=== PATIENT | female | born 1985 | race Caucasian/White ===

== ENCOUNTER 2016-11-11 15:55 | Outpatient (CLI) | payer OTHER ==
[~2016-11-11] VITALS: Ht 165.1 cm; Wt 65.9 kg
[2016-11-11 15:57] VITALS: Ht 165.1 cm; Wt 65.9 kg
[2016-11-11 16:22] VITALS: BP 102/63; PULSE 73; RESP 18
[2016-11-11] MEDS ORDERED: PNV91TAB3 PO (16:22)
--- NOTE | 2016-11-11 16:39 | RADRPT ---
PROCEDURE: US OB biophysical profile. CLINICAL INDICATION: decreased movements, low BRITTON TECHNIQUE: Multiple sonographic images of the pelvis were obtained. The images were reviewed on a PACS workstation. COMPARISON: No prior studies are available for comparison. FINDINGS: There is a single viable intrauterine gestation. Cardiac activity is present with 158 beats per min agdaagux. There is a vertex presentation. The placenta is anterior. There is no evidence of placental abruption. There is a decreased amount of amniotic fluid with an BRITTON = 7.2 cm. Biophysical profile: movement 2/2 tone 2/2. breathing 2/2 BRITTON 2/2 Total 03/10 RPTAT: AA . IMPRESSION: Normal biophysical profile. Slightly decreased BRITTON measuring 7.2 cm. . .Alex Watts MD, Date Time Electronically viewed and signed by .Alex Watts MD, on 11/11/2016 16:39 .S/
--- NOTE | 2016-11-11 17:03 | TRIAGE ---
OB Triage Datetime Report Generated by CPN: 11/11/2016 17:03 Datetime: 11/11/2016 16:39 Labor Evaluation Monitor Mode: External Resting Tone [place]: Relaxed Heart Rate FHR Baseline Rate: 135 Monitor Mode: External US FHR Baseline Changes: No Baseline Change Variability: Moderate 6-25 bpm Accelerations: 15X15 Decelerations: None Category: Category I Pain Assessment Pain Presence: None/Denies Datetime: 11/11/2016 16:15 Assessment Type: Triage Maternal Assessment Level of Consciousness: Fully Conscious DTR's/Clonus: DTRs 2+; No Clonus Headache: Denies Blurred Vision: No Respiratory Effort: Unlabored; Regular Rhythm; Equal Expansion Breath Sounds, Left: Clear and Equal Breath Sounds, Right: Clear and Equal Nausea/Vomiting: Denies RUQ Epigastric Pain: Denies Lower Extremities Edema: None Degree: None Upper Extremities Edema: None Degree: None Facial Edema: None Fall Risk Assessment History of Falling: (0) No Secondary Diagnosis: (0) No Ambulatory Aid: (0) Bedrest/Nurse Assist IV Therapy: (0) No Gait: (0) Normal/Bedrest/Immobile Mental Status: (0) Oriented to Own Ability Fall Score: 0 Fall Risk Score Definition: No Risk: No action required Datetime: 11/11/2016 16:08 Temperature Route: Oral Datetime: 11/11/2016 16:06 Monitor Mode: External US Datetime: 11/11/2016 15:58 Time of Arrival: 11/11/2016 15:52 EGA: 35.2 Arrived By: Ambulatory Arrived From: Office Chief Complaint: Low BRITTON from clinic Movement: Present Contractions: Denies/Absent Rupture of Membranes: Denies Vaginal Bleeding: Normal Show Vaginal Discharge: Present Recent Sexual Intercouse: Denies Abdominal Trauma: Not Applicable Patient Complaints: None Time Provider Notified: 11/11/2016 16:41 Provider Notified: Sujata Initial Plan: NST, BPP/BRITTON Datetime: 11/11/2016 15:56 Stage of : OB Triage
--- NOTE | 2016-11-11 17:32 | CONS ---
Date/Time of Note Date/Time of Note DATE: 11/11/16 TIME: 17:24 Consultation Date/Type/Reason Admit Date/Time November 12, 1999 OB triage consult Reason for Consultation This patient is a 31 years old 1 para 0 with EDC of December 14, 2016 which makes her 35 weeks and 2 days no she was sent to the OB triage for possible oligohydramnios On examination she is a well-developed well-nourished lady in no acute distress Her ear nose throat are normal Neck is normal no neck vein distention no thyromegaly Chest heart normal abdomen is soft she has occasional contraction movement is palpable No CVA tenderness extremities no edema no varicosities knee-jerk reflex is normal Her vital signs appears to be within normal limits blood pressure 102/63 pulse rate 73 respiration 18 temperature 97.9 heart tracing appears to be normal with good variability and acceleration no decelerations Hx of Present Illness On ultrasound study the report is a single viable intrauterine gestation with cardiac activity of 150 bpm placenta is anterior. There is no evidence of placenta abruption There is a decreased amount of amniotic fluid with BRITTON of 7.2 cm Biophysical profile reported 03/10 Constitutional: No chills, No diaphoresis, No disoriented, No febrile, No improved, No no complaints, No other, No poor po, No requiring IVF, No requiring O2 Eyes: No discharge, No no complaints, No other, No pain, No redness, No visual change ENT: No bleeding, No congestion, No discharge, No dysphagia, No no complaints, No other, No pain, No sore throat Respiratory: No cough, No no complaints, No other, No pain, No pleuritic pain, No shortness of breath, No sputum, No wheezing Cardiovascular: No chest pain, No edema, No lightheadedness, No no complaints, No orthopenea, No other, No palpitations, No paroxysmal nocturnal dyspnea Gastrointestinal: No blood, No constipation, No decreased appetite, No diarrhea , No flatus, No nausea, No no complaints, No other, No pain, No passing stool, No vomiting Genitourinary: other (No vaginal bleeding no excessive vaginal discharge), No bleeding, No discharge, No dysuria, No flank pain, No hematuria, No no complaints Musculoskeletal: No back pain, No bone/joint pain, No neck pain, No no complaints, No other, No restricted range of motion, No swelling Skin: No bruising, No erythema, No laceration, No no complaints, No other, No pruritis, No rash, No skin lesions Neurologic: No confusion, No dizziness, No focal-weakness, No headache, No no complaints, No other, No seizure, No syncope Additional Comments With these positive findings patient was discharged home and she will return in 3 days to repeat her BRITTON and biophysical profile. the kick count was mentioned to the patient End of dictation Social History Smoking Status: Never smoker Exam/Review of Systems Vital Signs Vitals Vital Signs Date Time Temp Pulse Resp B/P Pulse Ox O2 Delivery O2 Flow Rate FiO2 11/11/16 16:22 97.9 73 18 102/63 Room Air JEROD WANG MD Nov 11, 2016 17:32
== END 2016-11-11 17:04 | disposition home or self-care (01) ==
LOC: OBT 15:55 → L-D 15:56 → OBT 17:04
PROVIDERS: ATTEND Obstetrics & Gynecology
DX: O41.03X0 Oligohydramnios, third trimester, not applicable or unspecified (principal); Z3A.35 35 weeks gestation of pregnancy
CPT/HCPCS: 76818; Z7500; G0463

== ENCOUNTER 2016-11-14 11:46 | Outpatient (CLI) | payer OTHER ==
[~2016-11-14] VITALS: Ht 165.1 cm; Wt 66.0 kg
[~2016-11-14 11:46] MED LIST: PNV91TAB3 PO
[2016-11-14 11:56] VITALS: BMI 24.2
[2016-11-14 12:28] VITALS: BP 109/63; PULSE 74; Ht 165.1 cm; Wt 66.0 kg
--- NOTE | 2016-11-14 12:32 | RADRPT ---
PROCEDURE: US OB biophysical profile. CLINICAL INDICATION: decreased movements, low BRITTON TECHNIQUE: Multiple sonographic images of the pelvis were obtained. The images were reviewed on a PACS workstation. COMPARISON: 11/11/16 FINDINGS: There is a single viable intrauterine gestation. Cardiac activity is present with 08/11/1939 beats per minute. There is a vertex presentation. The placenta is anterior. There is no evidence of placental abruption. There is a decreased amount of amniotic fluid with an BRITTON = 6.5 cm. Biophysical profile: movement 2/2 tone 2/2. breathing 2/2 BRITTON 2/2 Total 03/10 RPTAT: AA . IMPRESSION: Normal biophysical profile. Oligohydramnios. . .Alex Watts MD, Date Time Electronically viewed and signed by .Alex Watts MD, MD on 11/14/2016 12:32 .S/
[2016-11-14] MEDS ORDERED: LACTATED RINGER'S 500 ML IV ONE (14:00)
--- NOTE | 2016-11-14 15:24 | PN ---
Date/Time of Note Date/Time of Note DATE: 11/14/16 TIME: 15:21 OB Subjective Subjective Subjective here for f/u BRITTON 31 y.o primigravida at 35w5d had BRITTON 7.2 3days ago here for f/u today only 6.5 IV bolus given OB Objective Objective Objective BRITTON 6.5 OB Assessment/Plan Other Assessment: IUP 35w5d oligohydramnios Other plan: rth 2days for repeat encourage to drink water SHAHNAZ SZYMANSKI MD Nov 14, 2016 15:24
== END 2016-11-14 15:35 | disposition home or self-care (01) ==
LOC: OBT 11:46 → L-D 11:47 → OBT 15:35
PROVIDERS: ATTEND Obstetrics & Gynecology
DX: O41.03X0 Oligohydramnios, third trimester, not applicable or unspecified (principal); Z3A.35 35 weeks gestation of pregnancy
CPT/HCPCS: 76818; J7120; Z7500; G0463

== ENCOUNTER 2016-11-16 07:44 | Outpatient (CLI) | payer OTHER ==
[~2016-11-16] VITALS: Ht 165.1 cm; Wt 67.1 kg
[2016-11-16 07:54] VITALS: Ht 165.1 cm; Wt 67.1 kg
[2016-11-16 07:55] VITALS: BP 119/72; PULSE 64
--- NOTE | 2016-11-16 08:59 | RADRPT ---
PROCEDURE: OB ultrasound CLINICAL INDICATION: Low BRITTON TECHNIQUE: Multiple transverse and longitudinal OB images of the pelvis were obtained. The images were reviewed on a high-resolution PACS workstation. COMPARISON: 11/14/2016 FINDINGS: A single live intrauterine is seen. The presentation is vertex. The placenta is grade 0/1 anterior in location. No evidence of placenta abruption or previa is seen. The heart rate is 142 beats per minute. The amniotic fluid index is 7.9 cm. movement 2 tone 2 breathing 2 Amniotic fluid 2 IMPRESSION: Biophysical profile of 03/10. RPTAT: HPNM Physician Dagmar Date Time Electronically viewed and signed by Physician Dagmar on 11/16/2016 08:59 /
--- NOTE | 2016-11-16 18:15 | QN ---
Documentation Comment no complaints vss exam wnl a/p ho of borderline melissa nl afir f/u as schedueled MARLYS CHARLES MD Nov 16, 2016 18:15
== END 2016-11-16 10:00 | disposition home or self-care (01) ==
LOC: OBT 07:44 → L-D 07:48 → OBT 10:00
PROVIDERS: ATTEND Obstetrics & Gynecology
DX: O41.03X0 Oligohydramnios, third trimester, not applicable or unspecified (principal); Z3A.36 36 weeks gestation of pregnancy
CPT/HCPCS: 76818; Z7500; G0463

== ENCOUNTER 2016-11-18 10:25 | Outpatient (CLI) | payer OTHER ==
[~2016-11-18] VITALS: Ht 165.1 cm; Wt 66.1 kg
[2016-11-18 10:27] VITALS: Ht 165.1 cm; Wt 66.1 kg
[2016-11-18 10:28] VITALS: BP 123/77; PULSE 80; RESP 18
--- NOTE | 2016-11-18 11:49 | RADRPT ---
PROCEDURE: OB ultrasound for biophysical profile CLINICAL INDICATION: Biophysical profile. . Low amniotic fluid index TECHNIQUE: Multiple sonographic images of the pelvis were obtained. Transabdominal view of the gr avid uterus are available for review. COMPARISON: 11/16/2016 FINDINGS: Single intrauterine gestation. Presentation: Cephalic. breathing movement = 2/2 tone = 2/2 motion = 2/2 BRITTON = 2/2 BRITTON = 6.2 cm heart rate: 154 beats per minute IMPRESSION: Single intrauterine gestation. Biophysical profile 03/10 BRITTON 6.2 cm, previously 7.9 cm. Borderline oligohydramnios. RPTAT: AADD .Balwinder Chen MD, MD Date Time Electronically viewed and signed by .Balwinder Chen MD, on 11/18/2016 11:48 .B/
--- NOTE | 2016-11-18 13:04 | CONS ---
Date/Time of Note Date/Time of Note DATE: 11/18/16 TIME: 12:55 Consultation Date/Type/Reason Admit Date/Time November 18, 2016 OB triage consult Reason for Consultation 31 This patient is a 31 years old 1 para 0 with EDC of 12/14/2016 which makes her 36 weeks and 2 days today She came to OB triage clinic due to low BRITTON which was found on previous workups during this and examining this patient she did not have much of a contraction or pain her abdomen was soft heart tone was normal with good variability and acceleration vital signs were normal blood pressure 123/77 pulse rate 80 respiration 18 temperature 97.9 Constitutional: improved, no complaints, No chills, No diaphoresis, No disoriented, No febrile, No other, No poor po, No requiring IVF, No requiring O2 Eyes: No discharge, No no complaints, No other, No pain, No redness, No visual change ENT: No bleeding, No congestion, No discharge, No dysphagia, No no complaints, No other, No pain, No sore throat Respiratory: No cough, No no complaints, No other, No pain, No pleuritic pain, No shortness of breath, No sputum, No wheezing Cardiovascular: No chest pain, No edema, No lightheadedness, No no complaints, No orthopenea, No other, No palpitations, No paroxysmal nocturnal dyspnea Gastrointestinal: No blood, No constipation, No decreased appetite, No diarrhea , No flatus, No nausea, No no complaints, No other, No pain, No passing stool, No vomiting Genitourinary: other (No vaginal bleeding or excessive disc pelvic examination however was not performed), No bleeding, No discharge, No dysuria, No flank pain, No hematuria, No no complaints Musculoskeletal: No back pain, No bone/joint pain, No neck pain, No no complaints, No other, No restricted range of motion, No swelling Skin: No bruising, No erythema, No laceration, No no complaints, No other, No pruritis, No rash, No skin lesions Neurologic: No confusion, No dizziness, No focal-weakness, No headache, No no complaints, No other, No seizure, No syncope Endocrine: No dry skin, No no complaints, No other, No polydypsia, No polyuria , No temp intolerance Psychological: No anxiety, No confusion, No depression, No nl mood/affect, No no complaints, No other, No suicidal Immunologic: No immunodeficiency, No no complaints, No other, No pruritis, No rhinitis, No urticaria Additional Comments On ultrasound study the report was single intrauterine gestation in cephalic presentation breathing 2 out of 2 tone 2 out of 2 and motion 202 and a BRITTON was 6.2 cm Zometa 2 out of 2 understanding that her BRITTON 3 days ago was 7.9 and then again a week ago it was again 7.2 fairly low but fluctuating Disposition: Her case and our finding was discussed with the patient and she was recommended to drink plenty of fluid to do a kick count herself and return to the hospital in 3 days for further study and checkup Social History Smoking Status: Never smoker Exam/Review of Systems Vital Signs Vitals Vital Signs Date Time Temp Pulse Resp B/P Pulse Ox O2 Delivery O2 Flow Rate FiO2 11/18/16 10:28 97.9 80 18 123/77 Room Air JEROD WANG MD Nov 18, 2016 13:04
--- NOTE | 2016-11-18 13:11 | TRIAGE ---
OB Triage Datetime Report Generated by CPN: 11/18/2016 13:11 Datetime: 11/18/2016 10:54 Labor Evaluation Frequency: x2 contractions noted Monitor Mode: External Quality: Mild Pattern: Normal: <= 5 Contractions in 10 Minutes Resting Tone [place]: Relaxed Heart Rate FHR Baseline Rate: 135 Monitor Mode: External US FHR Baseline Changes: No Baseline Change Variability: Moderate 6-25 bpm Accelerations: 15X15 Decelerations: None Category: Category I Pain Presence: None/Denies Datetime: 11/18/2016 10:47 Decelerations: Variable Category: Category II Comments: Variable noted lasting 20 seconds with audrey to 110 returning to baseline with moderate variability. Pt repositioned Datetime: 11/18/2016 10:45 Time of Arrival: 11/18/2016 10:22 EGA: 36.2 Arrived By: Ambulatory Arrived From: Home Chief Complaint: Repeat BPP/BRITTON _ NST Movement: Present Contractions: Denies/Absent Rupture of Membranes: Denies Vaginal Bleeding: None Vaginal Discharge: Denies Recent Sexual Intercouse: Denies Abdominal Trauma: Not Applicable Patient Complaints: None Time Provider Notified: 11/18/2016 12:00 Provider Notified: Stephon Initial Plan: NST, BPP _ BRITTON Datetime: 11/18/2016 10:40 Assessment Type: Triage Maternal Assessment Level of Consciousness: Fully Conscious DTR's/Clonus: DTRs 2+; No Clonus Headache: Denies Blurred Vision: No Respiratory Effort: Unlabored; Regular Rhythm; Equal Expansion Breath Sounds, Left: Clear and Equal Breath Sounds, Right: Clear and Equal Nausea/Vomiting: Denies RUQ Epigastric Pain: Denies Lower Extremities Edema: None Degree: None Upper Extremities Edema: None Degree: None Facial Edema: None Fall Risk Assessment History of Falling: (0) No Secondary Diagnosis: (0) No Ambulatory Aid: (0) Bedrest/Nurse Assist IV Therapy: (0) No Gait: (0) Normal/Bedrest/Immobile Mental Status: (0) Oriented to Own Ability Fall Score: 0 Fall Risk Score Definition: No Risk: No action required Datetime: 11/18/2016 10:25 Stage of : OB Triage Pain Presence: None/Denies Datetime: 11/16/2016 09:46 Stage of : OB Triage Datetime: 11/16/2016 09:26 Stage of : OB Triage Datetime: 11/16/2016 09:09 Stage of : OB Triage Datetime: 11/16/2016 08:56 Labor Evaluation Frequency: OCCAS Monitor Mode: External Duration (sec)2399: 30-50 Quality: Mild Pattern: Normal: <= 5 Contractions in 10 Minutes Resting Tone [place]: Relaxed Contraction Comments: DENIES FEELING Heart Rate FHR Baseline Rate: 135 Monitor Mode: External US Variability: Moderate 6-25 bpm Accelerations: 10X10 Decelerations: None Category: Category I Pain Assessment Pain Scale: 0 Pain Presence: None/Denies Pain Type: N/A Pain Goal: 3 Pain Relief Measures: Comfort Measures Datetime: 11/16/2016 07:51 Stage of : OB Triage Assessment Type: Triage Maternal Assessment Level of Consciousness: Fully Conscious DTR's/Clonus: DTRs 2+; No Clonus Headache: Denies Blurred Vision: No Respiratory Effort: Unlabored; Regular Rhythm; Equal Expansion Breath Sounds, Left: Clear and Equal Breath Sounds, Right: Clear and Equal Nausea/Vomiting: Denies RUQ Epigastric Pain: Denies Facial Edema: None Temperature Route: Axillary Fall Risk Assessment History of Falling: (0) No Secondary Diagnosis: (0) No Ambulatory Aid: (0) Bedrest/Nurse Assist IV Therapy: (0) No Gait: (0) Normal/Bedrest/Immobile Mental Status: (0) Oriented to Own Ability Fall Score: 0 Fall Risk Score Definition: No Risk: No action required Labor Evaluation Frequency: 0 Monitor Mode: External Resting Tone [place]: Relaxed Heart Rate FHR Baseline Rate: 125 Monitor Mode: External US Variability: Moderate 6-25 bpm Accelerations: 10X10 Decelerations: None Category: Category I Pain Assessment Pain Scale: 0 Pain Presence: None/Denies Pain Type: N/A Pain Goal: 3 Pain Relief Measures: Comfort Measures Datetime: 11/16/2016 07:50 Time of Arrival: 11/16/2016 07:45 EGA: 36.0 Arrived By: Ambulatory Arrived From: Home Chief Complaint: FOLLOW UP LOW BRITTON Movement: Present Contractions: Denies/Absent Rupture of Membranes: Denies Vaginal Bleeding: None Vaginal Discharge: Denies Recent Sexual Intercouse: Denies Abdominal Trauma: Not Applicable Patient Complaints: None Time Provider Notified: 11/16/2016 09:48 Provider Notified: STEPHON/SHAMSIAN Initial Plan: MONITOR, BPP/BRITTON Datetime: 11/14/2016 15:05 Stage of : OB Triage Datetime: 11/14/2016 14:59 Labor Evaluation Frequency: 0 Monitor Mode: External Quality: Mild Pattern: Normal: <= 5 Contractions in 10 Minutes Resting Tone [place]: Relaxed Heart Rate FHR Baseline Rate: 135 Monitor Mode: External US Variability: Moderate 6-25 bpm Accelerations: 10X10 Decelerations: None Category: Category I Pain Assessment Pain Scale: 0 Pain Presence: None/Denies Pain Type: N/A Pain Goal: 3 Pain Relief Measures: Comfort Measures Datetime: 11/14/2016 13:42 Labor Evaluation Frequency: 0 Monitor Mode: External Resting Tone [place]: Relaxed Heart Rate FHR Baseline Rate: 140 Monitor Mode: External US Variability: Moderate 6-25 bpm Accelerations: 10X10 Decelerations: None Category: Category I Pain Assessment Pain Scale: 0 Pain Presence: None/Denies Pain Type: N/A Pain Goal: 3 Pain Relief Measures: Comfort Measures Datetime: 11/14/2016 13:35 Stage of : OB Triage Datetime: 11/14/2016 13:02 Stage of : OB Triage Datetime: 11/14/2016 12:31 Stage of : OB Triage Assessment Type: Triage Maternal Assessment Level of Consciousness: Fully Conscious DTR's/Clonus: DTRs 2+; No Clonus Headache: Denies Blurred Vision: No Respiratory Effort: Unlabored; Regular Rhythm; Equal Expansion Breath Sounds, Left: Clear and Equal Breath Sounds, Right: Clear and Equal Nausea/Vomiting: Denies RUQ Epigastric Pain: Denies Facial Edema: None Temperature Route: Axillary Fall Risk Assessment History of Falling: (0) No Secondary Diagnosis: (0) No Ambulatory Aid: (0) Bedrest/Nurse Assist IV Therapy: (0) No Gait: (0) Normal/Bedrest/Immobile Mental Status: (0) Oriented to Own Ability Fall Score: 0 Fall Risk Score Definition: No Risk: No action required Labor Evaluation Frequency: 0 Monitor Mode: External Quality: Mild Pattern: Normal: <= 5 Contractions in 10 Minutes Resting Tone [place]: Relaxed Heart Rate FHR Baseline Rate: 135 Monitor Mode: External US Variability: Moderate 6-25 bpm Accelerations: 10X10 Decelerations: None Category: Category I Pain Assessment Pain Scale: 0 Pain Presence: None/Denies Pain Goal: 3 Pain Relief Measures: Comfort Measures Datetime: 11/14/2016 12:30 Time of Arrival: 11/14/2016 11:38 EGA: 35.5 Arrived By: Ambulatory Arrived From: Home Chief Complaint: RECHECK FOR BRITTON Movement: Present Contractions: Denies/Absent Rupture of Membranes: Denies Vaginal Discharge: Denies Recent Sexual Intercouse: Denies Abdominal Trauma: Not Applicable Time Provider Notified: 11/14/2016 13:35 Provider Notified: STEPHON Initial Plan: MONITOR, BPP, BRITTON Datetime: 11/11/2016 16:15 Fall Score: 0 Fall Risk Score Definition: No Risk: No action required Datetime: 11/11/2016 15:58 EGA: 35.2
== END 2016-11-18 12:15 | disposition home or self-care (01) ==
LOC: OBT 10:25 → L-D 10:25 → OBT 12:15
PROVIDERS: ATTEND Obstetrics & Gynecology
DX: O41.03X0 Oligohydramnios, third trimester, not applicable or unspecified (principal); Z3A.36 36 weeks gestation of pregnancy
CPT/HCPCS: 76818; Z7500; G0463

== ENCOUNTER 2016-11-21 19:16 | Outpatient (CLI) | payer OTHER ==
[~2016-11-21] VITALS: Ht 165.1 cm; Wt 67.3 kg
[2016-11-21 19:18] VITALS: Ht 165.1 cm; Wt 67.3 kg
[2016-11-21] MEDS ORDERED: CA C1TAB66 PO (19:46)
--- NOTE | 2016-11-21 20:56 | RADRPT ---
PROCEDURE: OB ultrasound for biophysical profile CLINICAL INDICATION: Biophysical profile. . Low amniotic fluid index TECHNIQUE: Multiple sonographic images of the pelvis were obtained. Transabdominal views are obta ined. COMPARISON: 11/18/2016 FINDINGS: Single intrauterine gestation. Presentation: Cephalic. Placenta: Anterior - right lateral No evidence of placental abruption. No evidence of placenta previa. breathing movement = 2/2 tone = 2/2 motion = 2/2 BRITTON = 2/2 BRITTON = 6.3 cm heart rate: 146 beats per minute IMPRESSION: Single intrauterine gestation. Biophysical profile 03/10 Amniotic fluid index of 6.3 cm, previously 6.2 cm 11/18/2016 RPTAT: AADD .Balwinder Chen MD, Date Time Electronically viewed and signed by .Balwinder Chen MD, on 11/21/2016 20:56 .B/
--- NOTE | 2016-11-21 21:48 | CONS ---
Date/Time of Note Date/Time of Note DATE: 11/21/16 TIME: 21:44 Assessment/Plan Assessment/Plan Additional Assessment/Plan Low BRITTON. Encourage increase po hydration. Repeat NST/BPP in 3 days. F/u with Dr. Ernst as scheduled. Consultation Date/Type/Reason Admit Date/Time Hx of Present Illness at 36.5 weeks her for follow-up for low BRITTON. Last BRITTON was 6.2cm which increased to 7.9cm s/p IVFs. Patient reports trying to increase po hydration. Denies LOF, VB, UCs, dysuria. +FM. Getting PNC with Dr. Ernst, next appt is in 4 days. Past Medical History Medical History: no pertinent history Past Surgical History Past Surgical Hx: no surgical history Social History Other Social History Denies habits. Exam/Review of Systems Exam Gen: NAD HEENT: NCAT CV: RRR Pulm: CTAB Abd: gravid, NT Back: no CVAT Ext: NT FHT: reactive [place]: no UCs BRITTON: 6.3cm TARI VALENTINO Nov 21, 2016 21:48
== END 2016-11-21 21:40 | disposition home or self-care (01) ==
LOC: OBT 19:16 → L-D 19:16 → OBT 21:40
PROVIDERS: ATTEND Obstetrics & Gynecology
DX: O41.8X30 Other specified disorders of amniotic fluid and membranes, third trimester, not applicable or unspecified (principal); Z3A.36 36 weeks gestation of pregnancy
CPT/HCPCS: 76818; Z7500; G0463

== ENCOUNTER 2016-11-24 17:41 | Outpatient (CLI) | payer OTHER ==
[~2016-11-24] VITALS: Ht 165.1 cm; Wt 66.0 kg
[~2016-11-24 17:41] MED LIST changes: +CA C1TAB66 PO
[2016-11-24 18:00] VITALS: BP 112/65; PULSE 74; RESP 18; Ht 165.1 cm; Wt 66.0 kg
--- NOTE | 2016-11-24 18:56 | RADRPT ---
PROCEDURE: OB ultrasound CLINICAL INDICATION: Pelvic pain and low BRITTON TECHNIQUE: Multiple transverse and longitudinal OB images of the pelvis were obtained. The images were reviewed on a high-resolution PACS workstation. COMPARISON: 11/21/2016 FINDINGS: A single live intrauterine is seen. The presentation is vertex. The placenta is grade 1/2 and anterior in location. No evidence of placenta abruption or previa is seen. The heart rate is 126 beats per minute. The amniotic fluid index is 8.8 cm. movement 2 tone 2 breathing 2 Amniotic fluid 2 IMPRESSION: Biophysical profile of 03/10. RPTAT: HPNM Physician Dagmar Date Time Electronically viewed and signed by Physician Dagmar on 11/24/2016 18:55 /
--- NOTE | 2016-12-31 09:15 | QN ---
Documentation Comment oligohydramnios SHAHNAZ SZYMANSKI MD December 31, 2016 09:15
== END 2016-11-24 20:00 | disposition home or self-care (01) ==
LOC: L-D 17:41 → OBT 17:41
PROVIDERS: ATTEND Obstetrics & Gynecology
DX: O41.00X0 Oligohydramnios, unspecified trimester, not applicable or unspecified (principal); Z3A.00 Weeks of gestation of pregnancy not specified
CPT/HCPCS: 76818; Z7500

== ENCOUNTER 2016-11-27 19:48 | Outpatient (CLI) | payer OTHER ==
--- NOTE | 2016-11-25 01:10 | PN ---
Date/Time of Note Date/Time of Note DATE: 11/25/16 TIME: 01:02 OB Subjective Subjective Subjective 31 Year-old G1 with SIUP at 37weeks presents for repeat us. She had an us recently which had BRITTON of 6. She has been receiving her care with Dr. Ernst. She states good movement. She denies nausea, vomiting, shortness of breath, chest pain, and abdominal pain between contractions, headache, visual changes, vaginal bleeding or LOF. OB Objective Objective Objective General: Patient appears well, alert and oriented, NAD, appropriate mood and affect ABD: gravid, soft, non-tender. Back: No CVA tenderness (B/L) LE: No clubbing, cyanosis, edema, thigh or calf tenderness bilaterally FHT: 135 bpm , moderate variability with acceleration, no deceleration-category I Contractions: Occasional SVE: Closed/thick/high/ceph/intact membrane OB Assessment/Plan Other plan: 31 Year-old G1 with SIUP at 37weeks presents for repeat us. She had an us with FI: 6. OB us performed, current BRITTON: 8.8 - FHR: No sign of metabolic acidosis- Category I - Continuous EFM, toco - Contractions: Occasional - Reactive NST. BPP: 10/10 - Symptoms and sign of labor, preeclampsia, kick count discussed with patient, she voiced understanding. All of her questions answered. - Patient was discharged home in stable condition with the appropriate discharge instructions provided. I would like patient to have close follow-up with her primary physician or outpatient clinic in 1-2 days or return to the ER for worsening symptoms or any other urgent concerns. MARTIN LECHUGA Nov 25, 2016 01:10
[~2016-11-27] VITALS: Ht 165.1 cm; Wt 67.7 kg
[2016-11-27 20:05] VITALS: Ht 165.1 cm; Wt 67.7 kg
[2016-11-27 20:06] VITALS: BP 108/69; PULSE 76; RESP 18
--- NOTE | 2016-11-27 21:27 | RADRPT ---
PROCEDURE: US OB. CLINICAL INDICATION: Low BRITTON , pain TECHNIQUE: Transabdominal views of the pelvis are available for review. COMPARISON: 11/24/16 FINDINGS: There is a single intrauterine gestation in a vertex position. The heart rate is noted at 136 bpm. The placenta is anterior. The BRITTON measures 7.0 cm. RPTAT: AA IMPRESSION: Mild oligohydramnios. .Alex Watts MD, MD Date Time Electronically viewed and signed by .Alex Watts MD, MD on 11/27/2016 21:26 .S/
--- NOTE | 2016-11-27 21:41 | PN ---
Date/Time of Note Date/Time of Note DATE: 11/27/16 TIME: 21:38 OB Subjective Subjective Subjective 31 yo P0 @ 37+ wks, being followed for low BRITTON; last BRITTON 8.8, per patient good Fm, no Vb, no LOF, no ctx OB Objective Objective Objective Nml VS Abdomen- gravid, n/t sVE- deferred FHT- Cat I [place]- no ctx Abdomen: WNL Accelerations: Accelerations Present Decelerations: No Decelerations Contractions on Admission: None OB Assessment/Plan Other Assessment: Patient came for BRITTON check, no complaints -reassuring status Other plan: If nml BRITTON, d/c home f/u w ANDREA Caballero MD Nov 27, 2016 21:41
--- NOTE | 2016-11-27 22:25 | TRIAGE ---
OB Triage Datetime Report Generated by CPN: 11/27/2016 22:25 Datetime: 11/27/2016 21:57 Stage of : OB Triage Datetime: 11/27/2016 21:48 Stage of : OB Triage Datetime: 11/27/2016 21:17 Labor Evaluation Frequency: 0 Monitor Mode: External Heart Rate FHR Baseline Rate: 135 Monitor Mode: External US FHR Baseline Changes: No Baseline Change Variability: Moderate 6-25 bpm Accelerations: 15X15 Decelerations: None Category: Category I Datetime: 11/27/2016 21:00 Labor Evaluation Frequency: IRREGULAR Monitor Mode: External Duration (sec)2399: 60-100 Quality: Mild Pattern: Normal: <= 5 Contractions in 10 Minutes Resting Tone Latimer: Relaxed Heart Rate FHR Baseline Rate: 125 Monitor Mode: External US FHR Baseline Changes: No Baseline Change Variability: Moderate 6-25 bpm Accelerations: 15X15 Decelerations: None Category: Category I Datetime: 11/27/2016 19:50 Stage of : OB Triage Assessment Type: Triage Time of Arrival: 11/27/2016 19:49 EGA: 37.4 Arrived By: Ambulatory Chief Complaint: HX OF LOW BRITTON Movement: Present Contractions: Denies/Absent Rupture of Membranes: Denies Vaginal Bleeding: None Vaginal Discharge: Denies Recent Sexual Intercouse: Denies Abdominal Trauma: Not Applicable Patient Complaints: None Time Provider Notified: 11/27/2016 19:40 Provider Notified: DR CAO Initial Plan: CALL ELAINE CHEN Maternal Assessment Level of Consciousness: Fully Conscious DTR's/Clonus: DTRs 2+; No Clonus Headache: Denies Blurred Vision: No Respiratory Effort: Unlabored; Regular Rhythm; Equal Expansion Breath Sounds, Left: Clear and Equal Breath Sounds, Right: Clear and Equal Nausea/Vomiting: Denies RUQ Epigastric Pain: Denies Lower Extremities Edema: None Degree: None Upper Extremities Edema: None Degree: None Facial Edema: None Temperature Route: Oral Fall Risk Assessment History of Falling: (0) No Secondary Diagnosis: (0) No Ambulatory Aid: (0) Bedrest/Nurse Assist IV Therapy: (0) No Gait: (0) Normal/Bedrest/Immobile Mental Status: (0) Oriented to Own Ability Fall Score: 0 Fall Risk Score Definition: No Risk: No action required Monitor Mode: External Monitor Mode: External US Pain Assessment Pain Scale: 0 Datetime: 11/24/2016 19:55 Stage of : OB Triage Datetime: 11/24/2016 19:50 Stage of : OB Triage Datetime: 11/24/2016 18:40 Labor Evaluation Frequency: OCCASIONAL Monitor Mode: External Duration (sec)2399: 40-50 Quality: Mild Pattern: Normal: <= 5 Contractions in 10 Minutes Resting Tone Latimer: Relaxed Heart Rate FHR Baseline Rate: 125 Monitor Mode: External US FHR Baseline Changes: No Baseline Change Variability: Moderate 6-25 bpm Accelerations: 15X15 Decelerations: None Category: Category I Datetime: 11/24/2016 18:31 Comments: BEDSIDE U/S FOR BRITTON Datetime: 11/24/2016 18:20 Labor Evaluation Frequency: 0 Monitor Mode: External Resting Tone Latimer: Relaxed Heart Rate FHR Baseline Rate: 130 Monitor Mode: External US FHR Baseline Changes: No Baseline Change Variability: Moderate 6-25 bpm Accelerations: 15X15 Decelerations: None Category: Category I Datetime: 11/24/2016 18:02 Monitor Mode: External Resting Tone Latimer: Relaxed Heart Rate FHR Baseline Rate: 130 Monitor Mode: External US FHR Baseline Changes: No Baseline Change Variability: Moderate 6-25 bpm Accelerations: 15X15 Decelerations: None Category: Category I Datetime: 11/24/2016 17:52 Stage of : OB Triage Assessment Type: Triage Time of Arrival: 11/24/2016 17:52 EGA: 37.1 Arrived By: Ambulatory Arrived From: Home Chief Complaint: LOW BRITTON Movement: Present Contractions: Denies/Absent Rupture of Membranes: Denies Vaginal Bleeding: None Vaginal Discharge: Denies Recent Sexual Intercouse: Denies Abdominal Trauma: Not Applicable Patient Complaints: Other Provider Notified: STEPHON Initial Plan: NST ,BRITTON Maternal Assessment Level of Consciousness: Fully Conscious DTR's/Clonus: DTRs 2+; No Clonus Headache: Denies Blurred Vision: No Respiratory Effort: Unlabored; Regular Rhythm; Equal Expansion Breath Sounds, Left: Clear and Equal Breath Sounds, Right: Clear and Equal Nausea/Vomiting: Denies RUQ Epigastric Pain: Denies Lower Extremities Edema: None Degree: None Upper Extremities Edema: None Degree: None Facial Edema: None Temperature Route: Oral Fall Risk Assessment History of Falling: (0) No Secondary Diagnosis: (0) No Ambulatory Aid: (0) Bedrest/Nurse Assist IV Therapy: (0) No Gait: (0) Normal/Bedrest/Immobile Mental Status: (0) Oriented to Own Ability Fall Score: 0 Fall Risk Score Definition: No Risk: No action required Monitor Mode: External Monitor Mode: External US Pain Assessment Pain Scale: 0 Pain Presence: None/Denies Pain Type: N/A Pain Goal: 0 Pain Relief Measures: Comfort Measures Datetime: 11/21/2016 21:33 Stage of : OB Triage Datetime: 11/21/2016 21:12 Stage of : OB Triage Datetime: 11/21/2016 20:24 Stage of : OB Triage Datetime: 11/21/2016 20:15 Labor Evaluation Frequency: NONE Monitor Mode: External Duration (sec)2399: NONE Pattern: Normal: <= 5 Contractions in 10 Minutes Heart Rate FHR Baseline Rate: 140 Monitor Mode: External US FHR Baseline Changes: No Baseline Change Variability: Moderate 6-25 bpm Accelerations: 15X15 Decelerations: None Category: Category I Datetime: 11/21/2016 20:00 Labor Evaluation Frequency: X1 Monitor Mode: External Duration (sec)2399: 70 Pattern: Normal: <= 5 Contractions in 10 Minutes Heart Rate FHR Baseline Rate: 140 Monitor Mode: External US FHR Baseline Changes: No Baseline Change Variability: Moderate 6-25 bpm Accelerations: 15X15 Decelerations: None Category: Category I Datetime: 11/21/2016 19:54 Vaginal Exam Membrane Status: Intact Datetime: 11/21/2016 19:22 Assessment Type: Triage Maternal Assessment Level of Consciousness: Fully Conscious Headache: Denies Blurred Vision: No Respiratory Effort: Unlabored; Regular Rhythm; Equal Expansion Nausea/Vomiting: Denies RUQ Epigastric Pain: Denies Lower Extremities Edema: None Upper Extremities Edema: None Facial Edema: None Fall Risk Assessment History of Falling: (0) No Secondary Diagnosis: (0) No Ambulatory Aid: (0) Bedrest/Nurse Assist IV Therapy: (0) No Gait: (0) Normal/Bedrest/Immobile Mental Status: (0) Oriented to Own Ability Fall Score: 0 Fall Risk Score Definition: No Risk: No action required Datetime: 11/21/2016 19:20 Time of Arrival: 11/21/2016 19:11 EGA: 36.5 Arrived By: Ambulatory Arrived From: Home Chief Complaint: F/U BPP FOR HX OF LOW BRITTON Movement: Present Contractions: Denies/Absent Rupture of Membranes: Denies Vaginal Bleeding: None Vaginal Discharge: Denies Recent Sexual Intercouse: Denies Abdominal Trauma: Not Applicable Patient Complaints: Other Additional Patient Complaints: DENIES Time Provider Notified: 11/21/2016 21:27 Provider Notified: UAJE Initial Plan: BPP, NST, CALL OB Datetime: 11/18/2016 10:45 EGA: 36.2 Datetime: 11/18/2016 10:40 Fall Score: 0 Fall Risk Score Definition: No Risk: No action required Datetime: 11/16/2016 07:51 Fall Score: 0 Fall Risk Score Definition: No Risk: No action required Datetime: 11/16/2016 07:50 EGA: 36.0 Datetime: 11/14/2016 12:31 Fall Score: 0 Fall Risk Score Definition: No Risk: No action required Datetime: 11/14/2016 12:30 EGA: 35.5 Datetime: 11/11/2016 16:15 Fall Score: 0 Fall Risk Score Definition: No Risk: No action required Datetime: 11/11/2016 15:58 EGA: 35.2
== END 2016-11-27 22:10 | disposition home or self-care (01) ==
LOC: OBT 19:48 → L-D 19:49 → OBT 22:10
PROVIDERS: ATTEND Obstetrics & Gynecology
DX: O41.03X0 Oligohydramnios, third trimester, not applicable or unspecified (principal); Z3A.37 37 weeks gestation of pregnancy
CPT/HCPCS: 76815; G0463

== ENCOUNTER 2016-12-04 16:08 | Inpatient (IN) | payer OTHER ==
[~2016-12-04] VITALS: Ht 165.1 cm; Wt 68.0 kg
[2016-12-04 16:27] VITALS: BP 116/61; PULSE 77; Ht 165.1 cm; Wt 68.0 kg
--- NOTE | 2016-12-04 17:17 | RADRPT ---
PROCEDURE: US biophysical profile. CLINICAL INDICATION: Low amniotic fluid volume. TECHNIQUE: Multiple sonographic images of the uterus were obtained. The images were revi ewed on a PACS workstation. COMPARISON: 11/27/2016. FINDINGS: The BRITTON is 4.2 cm. (Normal = 5-20 cm.) Breathing Movement: 2 Gross Body Movement: 2 Tone: 2 Qualitative Amniotic Fluid Volume: 0 TOTAL: 6 IMPRESSION: 1. The biophysical score is 6/8. 2. Oligohydramnios. RPTAT: QQ .Manas Landa MD, Date Time Electronically viewed and signed by .Manas Landa MD, on 12/04/2016 17:17 .R/
--- NOTE | 2016-12-04 17:20 | RADRPT ---
PROCEDURE: US OB CLINICAL INDICATION: LOW BRITTON TECHNIQUE: Multiple sonographic images of the pelvis were obtained. The images were reviewed on a PACS workstation. COMPARISON: None FINDINGS: The cervix is not well visualized. There is a single viable intrauterine gestation. Cardiac activity is present with 124 beats per minute. There is a vertex presentation. The placenta is anterior and right lateral in location. There is no evidence for an abruption or [place] previa. There is a low amount of amniotic fluid with an BRITTON = 4.2 cm. Measurements were made in order to determine age. The results are as follows (cm): BPD =9.37 HC =33.51 AC =33.77 FL =7.48 Estimated gestational age by ultrasound of approximately 38 weeks, 1 day. The estimated date of delivery by ultrasound is 12/17/2016. Estimated gestational age by LMP of approximately 38 weeks, 4 days. The estimated date of delivery by LMP is 12/14/2016. EFW = 3354 grams (50th percentile) IMPRESSION: Single viable intrauterine gestation of approximately 38 weeks, 1 day . The estimated date of delivery is 8 12/17/2016 . Dating by ultrasound is within 3 days of dating by LMP. Low BRITTON of 4.2 cm. Cephalic presentation. Estimated weight is in the 50th percentile. RPTAT: EE Physician Lilly Date Time Electronically viewed and signed by Physician Lilly on 12/04/2016 17:19 RA/
[2016-12-04] MEDS: LACTATED RINGER'S 1,000 ML IV SCH (18:22)
[2016-12-04 18:38] LABS: ADD SCAN DIFF NO
[2016-12-04 18:41] LABS: BASOPHILS % 0.1 % (0.0-2.0); EOSINOPHILS # 0.1 10^3/ul (0.0-0.5); EOSINOPHILS % 1.6 % (0.0-7.0); HEMATOCRIT 36.3 % (37.0-47.0); HEMOGLOBIN 12.2 g/dl (12.0-16.0); LYMPHOCYTES % 25.2 % (15.0-51.0); MEAN CORPUSCULAR HEMOGLOBIN 29.5 pg (29.0-33.0); MEAN CORPUSCULAR HGB CONC 33.6 g/dl (32.0-37.0); MEAN CORPUSCULAR VOLUME 87.9 fl (82.0-101.0); MEAN PLATELET VOLUME 11.7 fl (7.4-10.4); MONOCYTE # 0.7 10^3/ul (0.3-0.9); MONOCYTES % 8.9 % (0.0-11.0); NEUTROPHIL # 5.2 10^3/ul (1.6-7.5); NEUTROPHILS % 63.7 % (39.0-77.0); PLATELET COUNT 150 10^3/UL (140-415); RED BLOOD COUNT 4.13 10^6/ul (4.20-5.40); RED CELL DISTRIBUTION WIDTH 12.8 % (11.5-14.5); WHITE BLOOD COUNT 8.1 10^3/ul (4.8-10.8)
[2016-12-04 20:15] LABS: PT RATIO 0.9
[2016-12-04 20:41] LABS: PARTIAL THROMBOPLASTIN TIME 24.1 Sec (25.0-35.0)
[2016-12-04 20:47] LABS: INR 0.9; PROTIME 12.1 Sec (12.2-14.2)
[2016-12-05] MEDS: LACTATED RINGER'S 1,000 ML IV SCH ×4 (01:16→22:46)
--- NOTE | 2016-12-05 09:42 | RADRPT ---
PROCEDURE: US OB. CLINICAL INDICATION: Low BRITTON , pain TECHNIQUE: Transabdominal views of the pelvis are available for review. COMPARISON: 12/04/2016 FINDINGS: There is a single intrauterine gestation in a vertex position. The heart rate is noted at 140 bpm. The placenta is anterior. The BRITTON measures 5.2 cm. RPTAT: AA IMPRESSION: Decreased BRITTON measuring 5.2 cm. .Alex Watts MD, MD Date Time Electronically viewed and signed by .Alex Watts MD, on 12/05/2016 09:42 .S/
[2016-12-05] MEDS ORDERED: OXYTOCIN 30 UNITS/LR 500 ML IV PRN ×2 (18:30→23:00)
[2016-12-05] MEDS ORDERED: MISOPROSTOL 200 MCG TAB PR PRN (18:30)
[2016-12-05] MEDS ORDERED: METHYLERGONOVINE 0.2 MG INJ IM PRN (18:30)
[2016-12-05] MEDS ORDERED: LIDOCAINE 1% (MPF) 30 ML INJ INJ PRN (18:30)
[2016-12-05] MEDS ORDERED: CARBOPROST 250 MCG INJ IM PRN (18:30)
[2016-12-05] MEDS ORDERED: LACTATED RINGER'S 1,000 ML IV PRN (18:30)
[2016-12-05 19:21] LABS: ADD SCAN DIFF NO
[2016-12-05 19:31] LABS: BASOPHILS % 0.3 % (0.0-2.0); EOSINOPHILS # 0.1 10^3/ul (0.0-0.5); EOSINOPHILS % 1.9 % (0.0-7.0); HEMATOCRIT 34.5 % (37.0-47.0); HEMOGLOBIN 11.5 g/dl (12.0-16.0); LYMPHOCYTES # 1.7 10^3/ul (0.8-2.9); MEAN CORPUSCULAR HEMOGLOBIN 29.3 pg (29.0-33.0); MEAN CORPUSCULAR HGB CONC 33.3 g/dl (32.0-37.0); MEAN CORPUSCULAR VOLUME 87.8 fl (82.0-101.0); MEAN PLATELET VOLUME 11.7 fl (7.4-10.4); MONOCYTE # 0.6 10^3/ul (0.3-0.9); MONOCYTES % 8.8 % (0.0-11.0); NEUTROPHIL # 4.2 10^3/ul (1.6-7.5); NEUTROPHILS % 62.6 % (39.0-77.0); PLATELET COUNT 142 10^3/UL (140-415); RED BLOOD COUNT 3.93 10^6/ul (4.20-5.40); WHITE BLOOD COUNT 6.7 10^3/ul (4.8-10.8)
[2016-12-05 22:24] LABS: INR 0.9; PROTIME 12.1 Sec (12.2-14.2); PT RATIO 0.9
[2016-12-05 22:25] LABS: PARTIAL THROMBOPLASTIN TIME 23.1 Sec (25.0-35.0)
[2016-12-06] MEDS: LACTATED RINGER'S 1,000 ML IV SCH ×2 (01:42→05:26)
[2016-12-06] MEDS ORDERED: FENTAnyl 2MCG/ML-ROPIV 0.2% 100 ML ONE (09:45)
--- NOTE | 2016-12-06 11:43 | RADRPT ---
Preliminary Report PROCEDURE: US OB. CLINICAL INDICATION: Low amniotic fluid index prior study. TECHNIQUE: Transabdominal and transvaginal views of the pelvis are available for review. COMPARISON: OB sonogram 12/05/2016. FINDINGS: Fetus is identified containing a single viable fetus present in a cephalic. There is a anterior gra de 1-2 placenta. heart rate:136 beats per minute. Amniotic fluid index:4.9 cm. (Oligohydramnios.) This previously measured 5.2 cm on 12/05/2016. IMPRESSION: 1. Single live intrauterine is identified with a heart rate of 136 beats per minute. 2. Oligohydramnios. RPTAT:AAJJ Physician Dominique Date Time Electronically viewed and signed by Quinton Childs Physician on 12/06/2016 11:42 JUAN/
[2016-12-06] MEDS ORDERED: OXYTOCIN 30 UNITS/LR 500 ML IV SCH ×2 (13:30)
[2016-12-06 15:30] VITALS: BP 124/66; PULSE 89; RESP 18
[2016-12-06] MEDS ORDERED: OXYCODONE/ASPIRIN (4.88/325) TAB PO PRN (15:30)
[2016-12-06] MEDS ORDERED: OXYTOCIN 30 UNITS/LR 500 ML IV PRN (15:30)
[2016-12-06] MEDS ORDERED: ZOLPIDEM 5 MG TAB PO PRN (15:30)
[2016-12-06] MEDS ORDERED: CARBOPROST 250 MCG INJ IM PRN (15:30)
[2016-12-06] MEDS ORDERED: MISOPROSTOL 200 MCG TAB PR PRN (15:30)
[2016-12-06] MEDS ORDERED: LANOLIN 7 GM TUBE TOP PRN (15:30)
[2016-12-06] MEDS ORDERED: METHYLERGONOVINE 0.2 MG INJ IM PRN (15:30)
[2016-12-06 16:00] VITALS: BP 118/70; PULSE 86; RESP 18
[2016-12-06] MEDS: OXYCODONE/ASPIRIN (4.88/325) TAB PO PRN ×2 (16:05→22:29)
[2016-12-06] MEDS: BENZOCAINE 20% 56 ML SPRAY TOP PRN (16:06)
[2016-12-06] MEDS: WITCH HAZEL/GLYCERIN PAD PR PRN (16:06)
[2016-12-06] MEDS: IBUPROFEN 600 MG TAB PO SCH (17:45)
[2016-12-06 20:27] VITALS: BP 107/69; PULSE 76; RESP 18
[2016-12-06] MEDS: SENNA/DOCUSATE NA (8.6MG/50MG) TAB PO SCH (20:50)
[2016-12-07] VITALS: BP 122/76; PULSE 74; RESP 18
[2016-12-07] MEDS: IBUPROFEN 600 MG TAB PO SCH ×5 (00:31→18:17)
[2016-12-07 04:00] VITALS: BP 93/57; PULSE 82; RESP 18
--- NOTE | 2016-12-07 07:48 | HP ---
Date/Time of Note Date/Time of Note DATE: 12/07/16 TIME: 07:42 OB - History Hx of Present Free Text/Dictation 31y.o primigravida was admitted for oligohydramnios which has been f/u for 4weeks reaced 4.9 BRITTON VE was not adequate due to patient was not able to tolerated pitocin was chosen to be used Estimated Due Date: December 14, 2016 : 1 Para: 0 Spontaneous : 0 Therapeutic : 0 Care: Good Care Ultrasounds: Normal mid trimester US Obstetrical Complications: Other (oligohydramnios) Past Family/Social History * Past Medical, Surgical, Family and Obstetric Histories reviewed from chart. Blood Type: O+ Rubella: immune RPR/VDRL: Negative GBS Status: Negative HBsAG: Negative OB Admission Exam Vital Signs Vital Signs Vital Signs Date Time Temp Pulse Resp B/P Pulse Ox O2 Delivery O2 Flow Rate FiO2 12/07/16 04:00 97.9 82 18 93/57 Room Air Physical Exam HEENT: WNL Heart: Rhythm Normal Lungs: Clear, Equal Abdomen: WNL Extremities: Normal Reflexes: Normal Cervical Dilatation: other Effacement: Other Station: -1 Membranes: Intact Amniotic Fluid: Unevaluable Heart Rate: 140's Accelerations: Accelerations Present Decelerations: No Decelerations Varibility: Moderate Contractions on Admission: None Last 72 hours Lab Results CBC & BMP 12/04/16 18:20 12/05/16 19:10 OB Assessment/Plan Reason for admission: induction of labor Other Assessment: IUP 38w6d oligohydramnios Plan: Induction Induction Method: per Pitocin Protocol SHAHNAZ SZYMANSKI MD December 07, 2016 07:48
[2016-12-07 07:51] VITALS: BP 115/80; PULSE 81; RESP 18
--- NOTE | 2016-12-07 07:51 | LDN ---
Date/Time of Note Date/Time of Note DATE: 12/07/16 TIME: 07:49 Delivery Summary Weeks of Gestation 38w6d Placenta Delivered: Spontaneously Meconium: none Episiotomy: No Perineal laceration: 2 Laceration repair: 00CH GUT Anesthesia type: Epidural Estimated blood loss: 200 Sponge & Needle done & correct: Yes All needle counts correct: Yes Any foreign bodies felt in the: No Problems: SHAHNAZ SZYMANSKI MD December 07, 2016 07:51
[2016-12-07 08:01] LABS: ADD SCAN DIFF NO
[2016-12-07 08:09] LABS: BASOPHILS % 0.2 % (0.0-2.0); EOSINOPHILS # 0.1 10^3/ul (0.0-0.5); EOSINOPHILS % 0.8 % (0.0-7.0); HEMATOCRIT 31.7 % (37.0-47.0); HEMOGLOBIN 10.9 g/dl (12.0-16.0); LYMPHOCYTES # 1.8 10^3/ul (0.8-2.9); LYMPHOCYTES % 14.9 % (15.0-51.0); MEAN CORPUSCULAR HEMOGLOBIN 29.9 pg (29.0-33.0); MEAN CORPUSCULAR HGB CONC 34.4 g/dl (32.0-37.0); MEAN CORPUSCULAR VOLUME 86.8 fl (82.0-101.0); MEAN PLATELET VOLUME 11.9 fl (7.4-10.4); MONOCYTE # 0.6 10^3/ul (0.3-0.9); MONOCYTES % 4.7 % (0.0-11.0); NEUTROPHIL # 9.6 10^3/ul (1.6-7.5); PLATELET COUNT 109 10^3/UL (140-415); RED BLOOD COUNT 3.65 10^6/ul (4.20-5.40); RED CELL DISTRIBUTION WIDTH 12.9 % (11.5-14.5); WHITE BLOOD COUNT 12.2 10^3/ul (4.8-10.8)
[2016-12-07] MEDS: SENNA/DOCUSATE NA (8.6MG/50MG) TAB PO SCH ×3 (08:59→23:12)
[2016-12-07 16:00] VITALS: BP 106/56; PULSE 77; RESP 18
[2016-12-07 20:00] VITALS: BP 108/64; PULSE 79; RESP 18
[2016-12-07] MEDS ORDERED: DIBUCAINE 1% 30 GM OINT TOP PRN (22:30)
[2016-12-07] MEDS ORDERED: ACETAMINOPHEN 325 MG TAB PO PRN (23:00)
[2016-12-07] MEDS: BENZOCAINE 20% 56 ML SPRAY TOP PRN (23:11)
[2016-12-07] MEDS: WITCH HAZEL/GLYCERIN PAD PR PRN (23:11)
[2016-12-08 04:00] VITALS: BP 124/64; PULSE 84; RESP 18
[2016-12-08] MEDS: IBUPROFEN 600 MG TAB PO SCH ×4 (06:00→23:37)
[2016-12-08] MEDS: ACETAMINOPHEN/CODEINE #3 TAB PO PRN ×3 (08:02→22:55)
[2016-12-08 08:05] VITALS: BP 109/65; PULSE 90; RESP 18
[2016-12-08] MEDS: SENNA/DOCUSATE NA (8.6MG/50MG) TAB PO SCH (08:18)
[2016-12-08] MEDS ORDERED: DIPHTH/TET/ACEL PERTUSS (ADULT) 0.5 ML VIAL IM* ONE (09:00)
[2016-12-08 16:00] VITALS: BP 116/67; PULSE 78; RESP 18
[2016-12-08 20:00] VITALS: BP 117/63; PULSE 76; RESP 20
[2016-12-08] MEDS ORDERED: LACTATED RINGER'S 500 ML IV ONE (20:00)
[2016-12-09 03:45] VITALS: BP 98/59; PULSE 74; RESP 12
[2016-12-09] MEDS: IBUPROFEN 600 MG TAB PO SCH ×3 (06:07→19:48)
[2016-12-09 08:30] VITALS: BP 111/65; PULSE 72; RESP 18
[2016-12-09] MEDS: SENNA/DOCUSATE NA (8.6MG/50MG) TAB PO SCH ×2 (08:40→21:22)
[2016-12-09] MEDS: ACETAMINOPHEN/CODEINE #3 TAB PO PRN (09:11)
[2016-12-09 16:00] VITALS: BP 112/62; PULSE 58; RESP 18
[2016-12-09] MEDS ORDERED: LACTATED RINGER'S 1,000 ML IV ONE (17:30)
--- NOTE | 2016-12-09 17:37 | DS ---
Date/Time of Note Date/Time of Note DATE: 12/09/16 TIME: 17:34 Obstetrical Discharge Record Final Diagnosis Final Diagnosis: Term delivered Vaginal Delivery Obstetrical Delivery: Spontaneous, Laceration, Repaired Complications Other (oligohydramnios) Induction: Yes Rupture of Membranes: No Condition on Discharge Physical Assessment Last Vitals: vss afebrile Voiding: Yes Bowel Movement: Yes Breast: Soft, non-tender Fundus: Firm Calf Tenderness: No Patient Condition: Stable (headahe which is positional radiate to nuchal area alleviated with hydration) SHAHNAZ SZYMANSKI MD December 09, 2016 17:37
--- NOTE | 2016-12-09 17:39 | PD.PPDC ---
[employer] Discharge Instruction Diagnosis Final Diagnosis: s/p normal vaginal delivery headche Condition Patient Condition: Stable (headahe which is positional radiate to nuchal area alleviated with hydration) Diet Diet: Resume Regular Diet Activity/Restrictions Activity: December Shower Restrictions: No Exercising No Lifting Minimize Walking Minimize Stair-climbing No Sexual Activity Nothing in the Vagina No [place] No Tampons, douche Follow-up Follow-up with Physician: 6 Return to clinic for [employer] Instructions: Fever greater than 101 Chills Worsening abdominal pain Excessive Vaginal Bleeding More than 2 pads per hour Unable to tolerate diet OB Instructions: Breast Tenderness Depression Blurried Vision Headache SHAHNAZ SZYMANSKI MD December 09, 2016 17:39
[2016-12-09 19:48] VITALS: BP 110/73; PULSE 70; RESP 19
[2016-12-09] MEDS ORDERED: LACTATED RINGER'S 1,000 ML IV SCH (22:00)
--- NOTE | 2016-12-09 23:02 | PN ---
Date/Time of Note Date/Time of Note DATE: 12/09/16 TIME: 22:59 OB Subjective Subjective Subjective still c/o headache which is positional after hydration feels little better OB Assessment/Plan Other Assessment: s/p vaginal delivery with headache poss due to regional anesthesia declined blood patch Other plan: one more IV bottle and ovenight and observe SHAHNAZ SZYMANSKI MD December 09, 2016 23:02
[2016-12-10] MEDS: IBUPROFEN 600 MG TAB PO SCH ×4 (00:28→12:00)
[2016-12-10 03:40] VITALS: BP 113/68; PULSE 68; RESP 19
[2016-12-10 09:20] VITALS: BP 123/81; PULSE 74; RESP 17
[2016-12-10] MEDS: SENNA/DOCUSATE NA (8.6MG/50MG) TAB PO SCH (09:24)
--- NOTE | 2016-12-10 12:29 | DS ---
Date/Time of Note Date/Time of Note DATE: 12/10/16 TIME: 12:26 Obstetrical Discharge Record Final Diagnosis Final Diagnosis: Term delivered Vaginal Delivery Obstetrical Delivery: Spontaneous, Laceration, Repaired Complications Induction: No Condition on Discharge Physical Assessment Last Vitals: vss afebrile fundus firm lochia min c/o headchae not better positional blood patch was rec by aneshegiologist yesterday but decision wasnt made today she requested to have procedure done Voiding: Yes Bowel Movement: Yes Breast: Soft, non-tender Fundus: Firm Calf Tenderness: No Patient Condition: Stable SHAHNAZ SZYMANSKI MD December 10, 2016 12:29
== END 2016-12-10 17:45 | disposition home or self-care (01) | DRG 774 ==
LOC: L-D 16:08 → OBT 16:08 → OBG 17:48 → OBT 17:48 → OBG 17:49 → L-D 12-05 18:30 → PP1 12-06 15:21
PROVIDERS: ADMIT Obstetrics & Gynecology; ATTEND Obstetrics & Gynecology
PROC: 3E033VJ Introduction of Other Hormone into Peripheral Vein, Percutaneous Approach (ICD-10-PCS; 2016-12-05)
PROC: 3E0P7GC Introduction of Other Therapeutic Substance into Female Reproductive, Via Natural or Artificial Opening (ICD-10-PCS; 2016-12-05)
PROC: 10E0XZZ Delivery of Products of Conception, External Approach (ICD-10-PCS; principal; 2016-12-07)
PROC: 0KQM0ZZ Repair Perineum Muscle, Open Approach (ICD-10-PCS; 2016-12-07)
DX: O41.03X0 Oligohydramnios, third trimester, not applicable or unspecified (principal); O90.89 Other complications of the puerperium, not elsewhere classified; Z3A.38 38 weeks gestation of pregnancy; Z37.0 Single live birth; O70.1 Second degree perineal laceration during delivery; R51 Headache
CPT/HCPCS: 62319; 76815; 76816; 76818; 85025; 85610; 85730; 86592; 86850; 86900; 86901; 87340; 90715; G0463; J2590; J3010; J7120